=== PATIENT | male | born 1960 | race Caucasian/White ===

== ENCOUNTER 2019-09-12 21:00 | Inpatient (IN) | payer OTHER ==
[2019-09-12] MEDS ORDERED: Magnesium Hydroxide (MOM) 30 mL UDC PO PRN (23:53)
[2019-09-13 01:31] VITALS: BP 141/80
--- NOTE | 2019-09-13 15:18 | Consultation ---
DATE OF CONSULTATION: 09/13/19 INTERNAL MEDICINE CONSULTATION HISTORY OF PRESENT ILLNESS: We have a 59-year-old male with schizophrenia who was transferred for agitation, suicidal ideations, but the patient is not able to give any significant history. PAST MEDICAL HISTORY: 1. Schizophrenia. 2. Hypertension. SURGICAL HISTORY: None. MEDICATIONS: List reviewed. ALLERGIES: None. SOCIAL HISTORY: Tobacco, IV drugs, ETOH negative. PHYSICAL EXAMINATION: VITAL SIGNS: Temperature is 97.8, pulse 70, respirations 20, blood pressure is 107/70. HEENT: Normocephalic, atraumatic head exam. NECK: Supple. CARDIOVASCULAR: Regular rate and rhythm. LUNGS: Decreased breath sounds. ABDOMEN: Soft, nontender. EXTREMITIES: No edema, cyanosis or clubbing. ASSESSMENT AND PLAN: 1. Schizophrenia. 2. Agitation. I will be co-managing medically with this patient. JOB# [id number] GIOVANI
--- NOTE | 2019-09-13 20:18 | Psychiatric Evaluation ---
DATE OF SERVICE: HISTORY OF PRESENT ILLNESS: The patient was brought in from [facility] via ambulance on a 5150 hold for being a danger to self. The patient apparently was endorsing suicidal ideations to walk into traffic or cut his own wrist, endorsing to having auditory and visual hallucinations that are sometimes commanding in nature. The patient is quite disorganized and a very poor historian, was very fixated on his tongue, which he kept on pulling with his hands. He is a very poor historian. MENTAL STATUS EXAMINATION: GENERAL APPEARANCE AND BEHAVIOR: The patient is resting comfortably in bed, not in acute distress, appears to be much older than stated age, missing several teeth. Speech is extremely slurred and hesitant. Mood, affect dysphoric and labile. Thought process and thought content, the patient endorsing auditory or visual hallucinations. Insight and judgment is poor. 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 PLAN: We would recommend starting the patient on antipsychotic such as Risperdal in hopes to attenuate his current psychosis. Monitor the patient on a daily basis for response to medications and titrate as needed. [facility]# [id number]
--- NOTE | 2019-09-14 12:07 | Internal Medicine Prog Note ---
Internal Medicine Subjective - Subjective Service Date: 09/14/19 Patient seen and examined:: without staff Patient is:: awake Per staff patient has:: no adverse event, no episodes of fall Internal Medicine Objective - Results Recent Labs: Laboratory Last Values POC Glucose 112 MG/DL (70 - 105) H 09/13/19 00:54 - Physical Exam Vitals and I&O: Vital Signs Temp 97.7 F 09/14/19 06:01 Pulse 79 09/14/19 06:01 Resp 20 09/14/19 06:01 BP 115/64 09/14/19 06:01 Pulse Ox 98 09/14/19 06:01 Intake & Output 09/13/19 09/14/19 09/14/19 18:59 06:59 18:59 Intake Total 420 Balance 420 Intake: Oral 420 Other: # Voids 3 1 # Bowel Movements 1 0 Active Medications: Current Medications Acetaminophen (Tylenol) 650 mg PO Q4H PRN PRN Reason: Pain (Mild 1-3) Stop: 11/11/19 23:52 Last Admin: 09/14/19 08:04 Dose: 650 mg Lorazepam (Ativan) 0.5 mg PO Q4HR PRN; Protocol PRN Reason: Anxiety Stop: 10/12/19 23:52 Magnesium Hydroxide (Milk Of Magnesia) 30 ml PO HS PRN PRN Reason: Constipation Risperidone (Risperdal) 0.5 mg PO DAILY SINAN; Protocol Stop: 11/13/19 08:59 Last Admin: 09/14/19 08:04 Dose: 0.5 mg Zolpidem Tartrate (Ambien) 5 mg PO HS PRN PRN Reason: Insomnia Stop: 11/11/19 23:52 Last Admin: 09/13/19 21:57 Dose: 5 mg General: NAD HEENT: NC/AT Neck: Supple, No JVD Lungs: CTAB Cardiovascular: RRR, Normal S1, Normal S2 Abdomen: soft, non-tender Extremities: clear Internal Medicine Assmt/Plan - Assessment Assessment: 1. Agitation 2. Schizophrenia - Plan Plan: continue supportive care
--- NOTE | 2019-09-14 17:17 | Progress Notes ---
DATE: 09/14/2019 SUBJECTIVE: A 59-year-old male, currently in the hospital, brought in from [facility] on a hold. He was endorsing SI with plans to walk into traffic, cut his wrists, endorsing hallucinations, stating he uses meth. The patient seems to have some tardive dyskinesia, extrapyramidal side effects. His tongue keeps going in and out, some oral buccal movements, stating he is still depressed, down, ongoing melancholy. He is still withdrawn. Fair sleep and appetite. States that he takes a variety of antipsychotic medications. Medications were reviewed. Vitals were reviewed. Labs were reviewed and EPS noted, tardive dyskinesia noted. The patient noting that he has had this for "a while" and alludes to methamphetamine as the major culprit, "I have been using meth for a while." DIAGNOSIS: Mood, unspecified; major depression, recurrent, unspecified; substance-induced mood disorder, possible schizophrenia. MEDICAL: Please see full H and P. PLAN: We will start dosing of Cogentin. This will likely not tardive dyskinesia, but may help any tremors or EPS. We will continue dosing of Risperdal. Consider an SSRI. JOB# [id number]
--- NOTE | 2019-09-15 13:42 | Internal Medicine Prog Note ---
Internal Medicine Subjective - Subjective Service Date: 09/15/19 Patient seen and examined:: without staff Patient is:: awake Per staff patient has:: no adverse event, no episodes of fall Internal Medicine Objective - Results Recent Labs: Laboratory Last Values POC Glucose 112 MG/DL (70 - 105) H 09/13/19 00:54 - Physical Exam Vitals and I&O: Vital Signs Temp 98.8 F 09/15/19 06:04 Pulse 80 09/15/19 06:04 Resp 20 09/15/19 06:04 BP 109/78 09/15/19 06:04 Pulse Ox 97 09/15/19 06:04 Intake & Output 09/14/19 09/15/19 09/15/19 18:59 06:59 18:59 Intake Total 900 380 Balance 900 380 Intake: Oral 900 380 Other: # Voids 3 # Bowel Movements 0 Active Medications: Current Medications Acetaminophen (Tylenol) 650 mg PO Q4H PRN PRN Reason: Pain (Mild 1-3) Stop: 11/11/19 23:52 Last Admin: 09/14/19 12:57 Dose: 650 mg Benztropine Mesylate (Cogentin) 0.5 mg PO DAILY SINAN Stop: 11/14/19 08:59 Last Admin: 09/15/19 08:24 Dose: 0.5 mg Escitalopram Oxalate (Lexapro) 10 mg PO DAILY SINAN; Protocol Stop: 11/15/19 08:59 Lorazepam (Ativan) 0.5 mg PO Q4HR PRN; Protocol PRN Reason: Anxiety Stop: 10/12/19 23:52 Last Admin: 09/15/19 13:37 Dose: 0.5 mg Magnesium Hydroxide (Milk Of Magnesia) 30 ml PO HS PRN PRN Reason: Constipation Risperidone (Risperdal) 0.5 mg PO DAILY SINAN; Protocol Stop: 11/13/19 08:59 Last Admin: 09/15/19 08:24 Dose: 0.5 mg Zolpidem Tartrate (Ambien) 5 mg PO HS PRN PRN Reason: Insomnia Stop: 11/11/19 23:52 Last Admin: 09/14/19 20:44 Dose: 5 mg General: NAD HEENT: NC/AT Neck: Supple, No JVD Lungs: CTAB Cardiovascular: RRR, Normal S1, Normal S2 Abdomen: soft, non-tender Extremities: clear Internal Medicine Assmt/Plan - Assessment Assessment: 1. Agitation 2. Schizophrenia - Plan Plan: continue supportive care
--- NOTE | 2019-09-15 22:07 | Progress Notes ---
DATE: 09/15/2019 Case was discussed with staff of the patient, reviewed records. This is a 59-year-old male who was admitted on 09/12/2019, brought from [facility] on a hold for being a danger to self. The patient apparently was endorsing suicidal ideation to walk into traffic or cut his own wrist, having auditory and visual hallucinations that are sometimes command in nature. The patient was disorganized, very poor historian, fixated on his tongue, which he kept on pulling with his hands. When I talked to him, he admits that he wanted to harm himself. He admits that he has tried to harm himself before, but would not give me details about how he tried to harm himself. He reports he was hospitalized before. Apparently, he has been started on Risperdal daily with no side effects, no sedation, no nausea. I will be adding an antidepressant to his medication because of depression, wanting to harm himself. The patient has no known drug allergy. Discussed side effects. He reports he lives with his daughter. I will try to reach out his daughter, work on discharge plan, get more information to help in the treatment process and the diagnostic process. We will continue outpatient group therapy, milieu therapy, adjust medication as needed. JOB# [id number] GIOVANI
--- NOTE | 2019-09-16 | Progress Notes ---
DATE: 09/15/2019 Case was discussed with staff of the patient, reviewed records, called his daughter, who told me that the patient cannot go back home with her that there is a warrant for his arrest, he was using meth. He has at least 3 prior hospitalizations. He has prior suicide attempt, unable to give me more details. She said he knows where he was hospitalized and he gave that information, though when I asked him, he was guarded about this information. However, we will continue to pursue that and hopefully we may get a copy of his prior treatment. I am not sure if we need to call the police or not, I gave the information to the director of the unit and we will continue the patient in group therapy, milieu therapy, and adjust medications as needed. JOB# [id number]
--- NOTE | 2019-09-16 15:31 | Internal Medicine Prog Note ---
Internal Medicine Subjective - Subjective Service Date: 09/16/19 Patient is:: awake Per staff patient has:: no adverse event, no episodes of fall Internal Medicine Objective - Results Recent Labs: Laboratory Last Values POC Glucose 112 MG/DL (70 - 105) H 09/13/19 00:54 - Physical Exam Vitals and I&O: Vital Signs Temp 98.4 F 09/16/19 14:00 Pulse 91 09/16/19 14:00 Resp 20 09/16/19 14:00 BP 134/79 09/16/19 14:00 Pulse Ox 96 09/16/19 14:00 Intake & Output 09/15/19 09/16/19 09/16/19 18:59 06:59 18:59 Intake Total 1200 540 Balance 1200 540 Intake: Oral 1200 540 Other: # Voids 4 2 # Bowel Movements 1 0 Active Medications: Current Medications Acetaminophen (Tylenol) 650 mg PO Q4H PRN PRN Reason: Pain (Mild 1-3) Stop: 11/11/19 23:52 Last Admin: 09/14/19 12:57 Dose: 650 mg Benztropine Mesylate (Cogentin) 0.5 mg PO DAILY SINAN Stop: 11/14/19 08:59 Last Admin: 09/16/19 08:40 Dose: 0.5 mg Escitalopram Oxalate (Lexapro) 10 mg PO DAILY SIANN; Protocol Stop: 11/15/19 08:59 Last Admin: 09/16/19 09:50 Dose: 10 mg Lorazepam (Ativan) 0.5 mg PO Q4HR PRN; Protocol PRN Reason: Anxiety Stop: 10/12/19 23:52 Last Admin: 09/16/19 08:40 Dose: 0.5 mg Magnesium Hydroxide (Milk Of Magnesia) 30 ml PO HS PRN PRN Reason: Constipation Risperidone (Risperdal) 0.5 mg PO DAILY SINAN; Protocol Stop: 11/13/19 08:59 Last Admin: 09/16/19 08:40 Dose: 0.5 mg Zolpidem Tartrate (Ambien) 5 mg PO HS PRN PRN Reason: Insomnia Stop: 11/11/19 23:52 Last Admin: 09/15/19 21:08 Dose: 5 mg General: NAD HEENT: NC/AT Neck: Supple, No JVD Lungs: CTAB Cardiovascular: RRR, Normal S1, Normal S2 Abdomen: soft, non-tender Extremities: clear Internal Medicine Assmt/Plan - Assessment Assessment: 1. Agitation 2. Schizophrenia - Plan Plan: patient is leaving AMA discussed with social work lecturer discussed with rema
--- NOTE | 2019-09-16 19:01 | Progress Notes ---
DATE: 09/16/2019 Case was discussed with staff of the patient, reviewed records. The patient continues to be occupied with discharge, though I did explain to him that he is still unable to go because his daughter said he cannot go back home. She reported his prior suicide attempt. Today, when I asked him again about how he tried, he said he tried to hang himself. He reports he was hospitalized at [facility] many, many times and asked what medication helped him the best, he said all medications in fact helped him. So far, no side effects with the medication, no sedation, no nausea, no extrapyramidal symptoms. He continues to be guarded, internally preoccupied, very poor insight, impulsive, unpredictable. No side effects with the medication, no sedation, no nausea, no extrapyramidal symptoms. I will continue the patient in group therapy, milieu therapy, and adjust medications as needed. JOB# [id number]
--- NOTE | 2019-09-17 08:47 | Discharge Summary ---
DATE OF DISCHARGE: 09/17/2019 DISCHARGE AGAINST MEDICAL ADVICE IDENTIFYING INFORMATION: The patient is a 59-year-old male. HISTORY OF PRESENT ILLNESS: The patient was brought from [facility] via ambulance on a hold for being a danger to self. The patient apparently was endorsing suicidal ideation to walk into traffic or cut his own wrist, having auditory and visual hallucinations, sometimes command in nature. The patient was quite disorganized, very poor historian, fixated on his tongue, which kept on playing with his hands. He was a poor historian. He was seen first by Dr. Silva, who apparently diagnosed him with psychosis, not otherwise specified, methamphetamine abuse. I did talk to his daughter who said that he has been hospitalized before. He tried to harm himself in the past. He has been using meth; there is a warrant for his arrest. He was kept on his Risperdal 0.5 mg daily. I added Lexapro 10 mg daily. He was on Cogentin 0.5 mg daily. The patient was fixated on discharge from the very beginning. The patient was sleeping well, eating well. Though he admits to history of prior suicide attempt, history of prior hospitalizations at [facility] and history of using meth and many hospitalizations, but he is fixating on discharge. He did have a prior court hearing on 09/16/2019 and apparently the dog show judge felt that the 5150 hold that was done by another facility was illegal because he forgot to put the timing though he did have a 5250 hold from our facility, but the dog show judge did not told that since the hold is not legal. He could not hold the patient. The patient advised the staff to have him discharge AMA. The patient decided to stay voluntarily so today somebody could help him find a way of going back home. DISCHARGE CONDITION: The patient was appropriately dressed, not very well groomed. He was alert to person, time, and situation. He denies any intent to harm himself or anyone minimize events of his admission. FINAL DIAGNOSES: Major depression, recurrent, severe with psychosis and methamphetamine dependence. MEDICAL DIAGNOSIS: I will defer to the medical doctor. The patient will follow up with the psychiatrist, primary care physician, and therapist. The patient is discharged against medical advice. JOB# [id number]
== END 2019-09-17 11:39 | disposition left against medical advice (07) | DRG 885 ==
LOC: GERO 21:00
PROVIDERS: ADMIT Psychiatry & Neurology Psychiatry; ATTEND Psychiatry & Neurology Psychiatry
DX: F33.3 Major depressive disorder, recurrent, severe with psychotic symptoms (principal); F23 Brief psychotic disorder; F15.20 Other stimulant dependence, uncomplicated; F39 Unspecified mood [affective] disorder; I10 Essential (primary) hypertension; Z71.51 Drug abuse counseling and surveillance of drug abuser
CPT/HCPCS: 82948-90; 83036-90; Z7610